=== PATIENT | female | born 1960 | race Two or more races ===

== ENCOUNTER 2022-04-29 05:08 | Day surgery (SDC) | payer OTHER ==
[~2022-04-29] VITALS: Ht 154.9 cm; Wt 42.6 kg
[~2022-04-29 05:08] MED LIST: BACLOFEN20 MG PO; BETHANECHOL CHL25 MG PO; CLONAZEPAM1 MG PO; GABAPETIN PO; ZANAFLEX4 M1 PO
[2022-04-29] MEDS ORDERED: TYLENOL325 MG PO (08:24)
== END 2022-04-29 11:20 | disposition home or self-care (01) ==
LOC: CIR.AMB 05:08
PROVIDERS: ATTEND Obstetrics & Gynecology Gynecology
DX: R87.613 High grade squamous intraepithelial lesion on cytologic smear of cervix (HGSIL) (principal); Z20.822 Contact with and (suspected) exposure to COVID-19; Z91.013 Allergy to seafood; Z88.6 Allergy status to analgesic agent